=== PATIENT | male | born 1975 | race Two or more races ===

== ENCOUNTER 2016-10-28 11:13 | Day surgery (SDC) | payer OTHER ==
[2016-10-28] VITALS (13 sets, daily range): BP systolic 113–143; BP diastolic 59–77; PULSE 52–66; RESP 12–18; Ht 167.6 cm; Wt 82.6 kg
[~2016-10-28] VITALS: Ht 167.6 cm; Wt 82.6 kg
[~2016-10-28 11:13] MED LIST: ACETAMINOPHEN 1000 MG/100 ML IVPB ONE
[2016-10-28] MEDS ORDERED: POLYMYXIN/BACITRACIN 1L IRRIG ONE (13:37)
[2016-10-28] MEDS ORDERED: BUPIVACAINE 0.25% (MPF) 30 ML INJ ONE (13:37)
[2016-10-28] MEDS ORDERED: MIDAZOLAM 1 MG/ML 2 ML INJ ONE (13:45)
[2016-10-28] MEDS ORDERED: PROPOFOL 20 ML ONE (13:45)
[2016-10-28] MEDS ORDERED: FENTAnyl 50 MCG/ML VIAL ONE ×3 (13:46→14:04)
[2016-10-28] MEDS ORDERED: DEXAMETHASONE 4 MG/ML 1 ML INJ ONE (13:55)
[2016-10-28] MEDS ORDERED: ONDANSETRON 4 MG INJ ONE (13:55)
[2016-10-28] MEDS ORDERED: CEFAZOLIN 1 GM INJ ONE (13:55)
[2016-10-28] MEDS ORDERED: METOCLOPRAMIDE 10 MG INJ ONE (13:55)
--- NOTE | 2016-10-28 14:54 | OPR ---
Date/Time of Note Date/Time of Note DATE: 10/28/16 TIME: 14:53 Operative Report Procedure Date: October 28, 2016 Preoperative Diagnosis RIH Postoperative Diagnosis incarcerated RIH Operation Performed 1. open incarcerated RIH repair with large ultra pro hernia system mesh 2. right ilioinguinal nerve block Surgeon: Kelli TOUSSAINT Anesthesia: general Complications: None Kelli TOUSSAINT October 28, 2016 14:54
[2016-10-28] MEDS ORDERED: HYDROCODONE/APAP (5/325) TAB PO ONE (15:00)
[2016-10-28] MEDS ORDERED: OXYCODONE/ACETAMINOPHEN (5/325) TAB ONE (15:15)
[2016-10-28] MEDS ORDERED: OXYCODONE/ACETAMINOPHEN (5/325) TAB PO ONE (15:30)
[2016-10-28] MEDS ORDERED: morphine (1 MG/ML) 10ML SYRINGE IV PRN ×2 (15:30)
[2016-10-28] MEDS ORDERED: ONDANSETRON 4 MG INJ IV PRN (15:30)
[2016-10-28] MEDS ORDERED: MEPERIDINE 25 MG INJ IV PRN (15:30)
[2016-10-28] MEDS ORDERED: HYDROmorphONE (0.2 MG/ML) 10ML SYG IV PRN ×2 (15:30)
[2016-10-28] MEDS ORDERED: DIPHENHYDRAMINE 50 MG INJ IV PRN (15:30)
--- NOTE | 2016-10-28 15:33 | OPR ---
DATE OF OPERATION: 10/28/2016 INDICATION: This is a 41-year-old male with an incarcerated large right inguinal hernia. He reques ts surgical repair. Risks, alternatives, benefits, and personnel were discussed with the patient. The patient expressed understanding and consents to the operation. PREOPERATIVE DIAGNOSIS: Incarcerated right inguinal hernia. POSTOPERATIVE DIAGNOSIS: Incarcerated right inguinal hernia. OPERATION: 1. Open incarcerated right inguinal hernia repair with large size Ultrapro hernia system mesh. 2. Right ilioinguinal nerve block. SURGEON: Tavares Sampson MD SPECIMEN: Hernia sac. COMPLICATIONS: None. ANESTHESIA: General. DESCRIPTION OF PROCEDURE: The patient was taken to the OR and prepped and draped in usual sterile f ashion. Surgical timeout was performed. IV antibiotics were given. Right inguinal oblique incisio n was made with a 10 blade. Dissection cautery was carried down to external oblique fascia which wa s opened with a 15 blade. This incision is extended medial inferiorly and lateral superiorly. Cord structures are identified and encircled with a [place] drain. A large indirect hernia which was in carcerated was identified and reduced. The hernia sac was opened and contents were all reduced. Th e base of the hernia sac is suture ligated with #0 Vicryl in a suture ligature. The excess hernia s ac was excised and sent for specimen. The ____ Ultrapro hernia system mesh was secured in place wit h a running 0 Prolene from the pubic tubercle along the shelving edge of the inguinal ligament and s uperiorly to the internal oblique with interrupted 3-0 Vicryl. [place]lay mesh was secured in a similar fashion with a running 0 Prolene from the pubic tubercle along the shelving edge of the inguinal lig ament and superiorly to the internal oblique with interrupted 3-0 Vicryl. Straps are created and re approximated to recreate the inguinal ring with 0 Prolene. External oblique fascia was closed with a running 3-0 Vicryl. Katherine's was closed with interrupted 3-0 Vicryl. Skin was closed using skin bernard. Local anesthesia was injected into the incision. A right ilioinguinal nerve block was per formed by identifying the ASIS and 2 cm medial and inferior to that point. The syringes were inject ed in a fan-like motion into the identified region. Dry dressings were applied. Dictated By: TAVARES CAMPBELL/COSMO Conf#: [id number] DID#: [id number]
== END 2016-10-28 17:00 | disposition home or self-care (01) ==
LOC: SDS 11:13
PROVIDERS: ATTEND Surgery
DX: K40.30 Unilateral inguinal hernia, with obstruction, without gangrene, not specified as recurrent (principal)
CPT/HCPCS: 49507; 88302; C1781; J0131; J0690; J1100; J2250; J2405; J2765; J3010; Z7512; Z7610

== ENCOUNTER 2017-05-10 10:21 | Day surgery (SDC) | payer OTHER ==
[2017-05-10] VITALS (15 sets, daily range): BP systolic 107–133; BP diastolic 56–69; PULSE 53–86; RESP 11–27; Ht 165.1 cm; Wt 81.1 kg
[~2017-05-10] VITALS: Ht 165.1 cm; Wt 81.1 kg
[~2017-05-10 10:21] MED LIST changes: -ACETAMINOPHEN 1000 MG/100 ML IVPB ONE; +CEFAZOLIN 2 GM/50 ML (PMX) 50 ML IVPB SCH; +SOD CHLORIDE 0.9% 1,000 ML IV SCH
[2017-05-10 11:15] LABS: ABNORMAL IP MESSAGE 1; HEMATOCRIT 38.7 % (42.0-52.0); HEMOGLOBIN 13.1 g/dl (14.0-18.0); MEAN CORPUSCULAR HGB CONC 33.9 g/dl (32.0-37.0); MEAN CORPUSCULAR VOLUME 85.8 fl (82.0-101.0); MEAN PLATELET VOLUME 10.3 fl (7.4-10.4); POSITIVE DIFF @See below; RED BLOOD COUNT 4.51 10^6/ul (4.70-6.10); RED CELL DISTRIBUTION WIDTH 15.2 % (11.5-14.5); WHITE BLOOD COUNT 3.9 10^3/ul (4.8-10.8)
[2017-05-10 11:19] LABS: HOLD TRANSMISSIONS 1
[2017-05-10 11:41] LABS: PLATELET COUNT 44 10^3/UL (140-415)
[2017-05-10 11:53] LABS: ALBUMIN 3.6 g/dl (3.3-4.9); ALBUMIN/GLOBULIN RATIO 1.02; BILIRUBIN,INDIRECT 1.5 mg/dl (0-1.1); BILIRUBIN,TOTAL 1.5 mg/dl (0.2-1.3); TOTAL PROTEIN 7.1 g/dl (6.1-8.1)
[2017-05-10 11:54] LABS: INR 1.28; PROTIME 16.1 Sec (12.2-14.2); PT RATIO 1.3
[2017-05-10 11:55] LABS: CALCIUM 8.7 mg/dl (8.4-10.2); CREATININE 0.7 mg/dl (0.61-1.24)
[2017-05-10 12:05] LABS: ANISOCYTOSIS 1+ (0-0); BASOPHILS % (M) 1 % (0-2); EOSINOPHILS % (M) 7 % (0-7); MICROCYTOSIS 1+ (0-0); MONOCYTES % (M) 9 % (0-11); PLATELET ESTIMATE DECREASED; POIKILOCYTOSIS 1+ (0-0); POLYCHROMASIA 1+ (0-0)
[2017-05-10 12:17] LABS: PARTIAL THROMBOPLASTIN TIME 39.3 Sec (25.0-35.0)
[2017-05-10] MEDS ORDERED: PROPOFOL 20 ML ONE (14:23)
[2017-05-10] MEDS ORDERED: CEFAZOLIN 1 GM INJ ONE (14:24)
[2017-05-10] MEDS ORDERED: LIDOCAINE 2% (SDV) 5 ML INJ ONE (14:24)
[2017-05-10] MEDS ORDERED: ROCURONIUM 50 MG INJ ONE (14:24)
[2017-05-10] MEDS ORDERED: BUPIVACAINE 0.5% (SDV) 30 ML INJ ONE (14:26)
[2017-05-10] MEDS ORDERED: KETOROLAC 30 MG INJ IV PRN (14:30)
[2017-05-10] MEDS ORDERED: EPHEDrine SULFATE 50 MG/5 ML SYG IV PRN (14:30)
[2017-05-10] MEDS ORDERED: ONDANSETRON 4 MG INJ IV PRN (14:30)
[2017-05-10] MEDS ORDERED: hydrALAzine 20 MG INJ IV PRN (14:30)
[2017-05-10] MEDS ORDERED: OXYCODONE/ACETAMINOPHEN (5/325) TAB PO PRN ×2 (14:30)
[2017-05-10] MEDS ORDERED: DIPHENHYDRAMINE 50 MG INJ IV PRN (14:30)
[2017-05-10] MEDS ORDERED: HYDROmorphONE (0.2 MG/ML) 10ML SYG IV PRN ×3 (14:30)
[2017-05-10] MEDS ORDERED: MEPERIDINE 25 MG INJ IV PRN (14:30)
[2017-05-10] MEDS ORDERED: FENTAnyl 50 MCG/ML VIAL IV PRN ×3 (14:30)
[2017-05-10] MEDS ORDERED: METOCLOPRAMIDE 10 MG INJ IV PRN (14:30)
[2017-05-10] MEDS ORDERED: LABETALOL HCL 20MG INJ IV PRN (14:30)
[2017-05-10] MEDS ORDERED: MIDAZOLAM 1 MG/ML 2 ML INJ IV PRN (14:30)
[2017-05-10] MEDS ORDERED: BUPIVACAINE 0.25% (MPF) 30 ML INJ ONE (14:56)
[2017-05-10] MEDS ORDERED: BUPIVACAINE 0.25% (MPF) 30 ML INJ INJ ONE (15:02)
--- NOTE | 2017-05-10 15:25 | OPR ---
Date/Time of Note Date/Time of Note DATE: 05/10/17 TIME: 15:22 Operative Report Procedure Date: May 10, 2017 Preoperative Diagnosis recurrent left inguinal hernia Postoperative Diagnosis recurrent incarcerated left inguinal hernia Operation/Procedure Performed 1. open recurrent incarcerated left inguinal hernia repair with medium ultrapro hernia system mesh 2. therapeutic injection of subcutaneous local anesthesia Surgeon see signature line Pulmonary Function Technologist none Anesthesia Type: general Estimated Blood Loss: 0 - 10 ml's Transfusion none Specimen none Grafts/Implants none Complications none Pt Condition Post Procedure: stable Indications This is a 41-year-old male with recurrent left inguinal hernia. He requests surgical repair. Risks alternatives benefits and percent were discussed the patient. Patient's best understanding consents to the operation. Procedure Description Patient is taken to the OR and prepped and draped in usual sterile fashion. Surgical timeout was performed. IV antibiotics given. Left inguinal oblique incision is made with a 10 blade. Dissection Carrs carried down to the axillary fascia. There appeared scarring in this area from prior surgery. Externally fascia was opened laterally. The hernia defect was identified which was medial and anterior. The incarcerated hernia was then reduced manually. The cord structures are encircled with a [place] drain. The hernia defect was identified and supported and buttress with the distal portion of the ultrapure hernia system mesh. This was secured in place with a running 0 Prolene from the pubic tubercle along the shelving edge of inguinal ligament and superiorly to intra-oblique. Onlay mesh is secured in a similar fashion with a running 0 Prolene from the pubic tubercle along the shelving of the inguinal ligament. Structure creating reapproximated around the cord structures to re-create the inguinal ring with interrupted 0 Prolene. Onlay mesh is secured to the intra- oblique with interrupted 3-0 Vicryl. External oblique fascia was also secured with the onlay mesh. There was not much remaining external oblique fascia. Katherine's fascia was closed with interrupted 3-0 Vicryl. Skin was closed using skin bernard. Therapeutic subcutaneous local anesthesia was injected throughout the incision site. Dry dressings were applied. Kelli TOUSSAINT May 10, 2017 15:25
[2017-05-10] MEDS ORDERED: NEOSTIGMINE 3 MG/3 ML SYRINGE ONE (15:27)
[2017-05-10] MEDS ORDERED: GLYCOPYRROLATE 0.4 MG INJ ONE (15:27)
[2017-05-10] MEDS ORDERED: HYDROCODONE/APAP (5/325) TAB PO ONE (15:30)
== END 2017-05-10 17:25 | disposition home or self-care (01) ==
LOC: SDS 10:21
PROVIDERS: ATTEND Surgery
DX: K40.91 Unilateral inguinal hernia, without obstruction or gangrene, recurrent (principal)
CPT/HCPCS: 49521; 80053; 85025; 85610; 85730; C1781; J0690; J2710; J3010; Z7512; Z7610

== ENCOUNTER 2017-10-18 09:43 | Day surgery (SDC) | END 2017-10-18 15:15 | disposition home or self-care (01) ==